=== PATIENT | female | born 1985 | race Caucasian/White ===

== ENCOUNTER 2019-05-22 10:06 | Emergency (ER) | payer SELFPAY ==
[~2019-05-22] VITALS: Ht 157.5 cm; Wt 57.0 kg
[2019-05-22] MEDS ORDERED: SODIUM CHLORIDE 0.9% 1,000 ML IV ONE (10:53)
[2019-05-22] MEDS ORDERED: KETOROLAC 30MG/ML VIAL IV STA (10:53)
[2019-05-22 11:17] LABS: BASOPHILS % 1.2 % (0.0-2.0); EOSINOPHILS % 1.2 % (0.0-5.0); HEMOGLOBIN. 12.8 g/dL (12.0-16.0); LYMPHOCYTES % 22.2 % (20.0-50.0); MEAN CORPUSCULAR HEMOGLOBIN 29.2 pg (28.0-32.0); MEAN CORPUSCULAR VOLUME 86.5 fL (81.0-99.0); MONOCYTES % 8.5 % (2.0-8.0); NEUTROPHILS % 66.9 % (40.0-76.0); PLATELET 373 x1000/uL (130-400); RED BLOOD CELL COUNT 4.39 mill/uL (4.2-5.4); RED CELL DISTRIBUTION WIDTH 14.9 % (11.6-14.6)
[2019-05-22 11:29] LABS: CHLORIDE 107 mEq/L (98-107)
[2019-05-22 11:38] LABS: CLARITY URINE CLEAR (CLEAR); COLOR URINE YELLOW (YELLOW); KETONES URINE NEGATIVE (NEGATIVE); LEUKOCYTE ESTERASE URINE NEGATIVE (NEGATIVE); NITRITE URINE NEGATIVE (NEGATIVE); OCCULT BLOOD URINE NEGATIVE (NEGATIVE); PROTEIN URINE NEGATIVE (NEGATIVE); SPECIFIC GRAVITY URINE 1.012 (1.005-1.030); UROBILINOGEN URINE 0.2 E.U./dL (0.2-1.0)
[2019-05-22] MEDS ORDERED: MAGNESIUM CITRATE 300ML SOLUTION PO ONE (14:30)
[2019-05-22 18:44] VITALS: BP 108/79
== END 2019-05-22 18:46 | disposition home or self-care (01) ==
LOC: ER 10:06
DX: K59.00 Constipation, unspecified (principal); M79.622 Pain in left upper arm; R10.84 Generalized abdominal pain
CPT/HCPCS: 36415; 74021; 80053; 81003; 81025; 83690; 85025; 96372; 96374; 99285; J1885; J7030

== ENCOUNTER 2020-05-05 23:22 | Emergency (ER) | payer SELFPAY ==
[~2020-05-05] VITALS: Ht 162.6 cm; Wt 72.0 kg
[2020-05-06] MEDS ORDERED: IBUPROFEN 800MG TABLET PO ONE
[2020-05-06 00:05] VITALS: BP 154/74
== END 2020-05-06 00:13 | disposition home or self-care (01) ==
LOC: ER 23:22
DX: M25.511 Pain in right shoulder (principal); M25.512 Pain in left shoulder
CPT/HCPCS: 99283

== ENCOUNTER 2021-11-01 04:39 | Inpatient (IN) | payer MEDICAID ==
[~2021-11-01] VITALS: Ht 165.1 cm; Wt 81.6 kg
[2021-11-01] MEDS ORDERED: LIDOCAINE HCL 1% 20ML VIAL (Pyxis) INJ INFIL SCH (05:15)
[2021-11-01] MEDS ORDERED: RHO(D) IMMUNE GLOBULIN 300 MCG/SYR IM ONE (05:15)
[2021-11-01] MEDS ORDERED: LACTATED RINGERS 1,000 ML IV SCH (05:15)
[2021-11-01] MEDS ORDERED: CARBOPROST TROMETHAMINE 250 MCG/ML AMPUL IM PRN (05:15)
[2021-11-01] MEDS ORDERED: MINERAL OIL 30ML BOTTLE TOP ONE (05:15)
[2021-11-01] MEDS ORDERED: MISOPROSTOL 100MCG TABLET VG SCH (05:15)
[2021-11-01] MEDS ORDERED: OXYTOCIN 30 UNITS/500ML NS PMX 500 ML IV SCH ×2 (05:15→06:30)
[2021-11-01] MEDS ORDERED: METHYLERGONOVINE MALEATE 0.2 MG/ML IM PRN (05:15)
[2021-11-01] MEDS ORDERED: NALOXONE HCL 0.4 MG/ML 1ML VIAL IM PRN (05:15)
[2021-11-01] MEDS: PENICILLIN G POTASSIUM 5 MMU in DEXT 5% WATER 100 ML IV SCH (05:25)
[2021-11-01 06:29] LABS: CLARITY URINE TURBID (CLEAR); COLOR URINE YELLOW (YELLOW); KETONES URINE NEGATIVE (NEGATIVE); LEUKOCYTE ESTERASE URINE 1+ (NEGATIVE); NITRITE URINE NEGATIVE (NEGATIVE); OCCULT BLOOD URINE 3+ (NEGATIVE); PH URINE 7.5 (4.5-8.0); PROTEIN URINE 2+ (NEGATIVE); UROBILINOGEN URINE 0.2 E.U./dL (0.2-1.0)
[2021-11-01] MEDS ORDERED: IBUPROFEN 400MG TABLET PO PRN (06:30)
[2021-11-01] MEDS ORDERED: LANOLIN OINT 7GM TUBE TOP PRN (06:30)
[2021-11-01] MEDS ORDERED: RHO(D) IMMUNE GLOBULIN 300 MCG/SYR IM PRN (06:30)
[2021-11-01 06:34] LABS: BASOPHILS % 0.7 % (0.0-2.0); EOSINOPHILS % 0.5 % (0.0-5.0); HEMATOCRIT. 33.4 % (36.0-48.0); HEMOGLOBIN. 10.7 g/dL (12.0-16.0); INR 0.9; LYMPHOCYTES % 21.9 % (20.0-50.0); MEAN CORPUSCULAR HEMOGLOBIN 25.8 pg (28.0-32.0); MEAN CORPUSCULAR VOLUME 80.5 fL (81.0-99.0); MEAN PLATELET VOLUME 9.7 fl (7.4-10.4); NEUTROPHILS % 67.9 % (40.0-76.0); PARTIAL THROMBOPLASTIN TIME 23.1 sec (23.4-31.0); PLATELET 250 x1000/uL (130-400); PROTHROMBIN TIME 9.6 sec (9.6-11.0); RED BLOOD CELL COUNT 4.15 mill/uL (4.2-5.4); RED CELL DISTRIBUTION WIDTH 21.8 % (11.6-14.6)
[2021-11-01 06:53] LABS: *AMPHETAMINES SCREEN URINE NEGATIVE (NEGATIVE); *BARBITURATES SCREEN URINE NEGATIVE (NEGATIVE); *BENZODIAZEPINES SCREEN URINE NEGATIVE (NEGATIVE); *COCAINE SCREEN URINE NEGATIVE (NEGATIVE); CANNABINOID URINE SCREEN NEGATIVE (NEGATIVE); METHADONE URINE SCREEN NEGATIVE (NEGATIVE); OPIATES URINE SCREEN NEGATIVE (NEGATIVE); PHENCYCLIDINE URINE SCREEN NEGATIVE (NEGATIVE)
[2021-11-01 08:30] VITALS: BP 112/56
[2021-11-01 09:00] VITALS: BP 112/58
[2021-11-01] MEDS ORDERED: PENICILLIN G POTASSIUM 2.5 MMU in DEXTROSE 5% WATER 50 ML IV SCH (09:30)
[2021-11-01] MEDS: PRENATAL VIT/FE FUMARATE/FA TABLET PO SCH (09:46)
[2021-11-01] MEDS: IBUPROFEN 800MG TABLET PO PRN (09:46)
[2021-11-01 13:06] LABS: HEPATITIS B SURFACE ANTIGEN NEGATIVE
[2021-11-01 16:00] VITALS: BP 107/55
[2021-11-01 19:30] VITALS: BP 119/59
[2021-11-02 05:06] VITALS: BP 124/52
[2021-11-02 06:10] LABS: BASOPHILS % 0.6 % (0.0-2.0); EOSINOPHILS % 0.9 % (0.0-5.0); HEMOGLOBIN. 9.6 g/dL (12.0-16.0); LYMPHOCYTES % 20.3 % (20.0-50.0); MEAN CORPUSCULAR HEMOGLOBIN 26.6 pg (28.0-32.0); MEAN CORPUSCULAR VOLUME 80.5 fL (81.0-99.0); MEAN PLATELET VOLUME 9.2 fl (7.4-10.4); MONOCYTES % 8.4 % (2.0-8.0); NEUTROPHILS % 69.8 % (40.0-76.0); PLATELET 218 x1000/uL (130-400); RED BLOOD CELL COUNT 3.61 mill/uL (4.2-5.4); RED CELL DISTRIBUTION WIDTH 22.1 % (11.6-14.6)
[2021-11-02] MEDS: PRENATAL VIT/FE FUMARATE/FA TABLET PO SCH (07:42)
[2021-11-02] MEDS: IBUPROFEN 800MG TABLET PO PRN ×2 (07:44→23:21)
[2021-11-02 07:45] VITALS: BP 126/66
[2021-11-02 09:32] LABS: PLATELET ESTIMATE NORMAL
[2021-11-02 16:00] VITALS: BP 122/74
[2021-11-02 20:00] VITALS: BP 138/78
[2021-11-03 04:00] VITALS: BP 125/76
[2021-11-03 08:00] VITALS: BP 117/65
[2021-11-03 11:26] VITALS: BP 117/65
[2021-11-03] MEDS: PRENATAL VIT/FE FUMARATE/FA TABLET PO SCH (11:26)
[2021-11-03] MEDS: IBUPROFEN 800MG TABLET PO PRN (11:26)
== END 2021-11-03 12:15 | disposition home or self-care (01) | DRG 560 ==
LOC: OBSVTOIN 04:39 → 8 EST LDRP 04:39 → 8EST 08:30
PROVIDERS: ADMIT Obstetrics & Gynecology; ATTEND Obstetrics & Gynecology
PROC: 10E0XZZ Delivery of Products of Conception, External Approach (ICD-10-PCS; principal; 2021-11-01)
DX: O80 Encounter for full-term uncomplicated delivery (principal); Z37.0 Single live birth; Z20.822 Contact with and (suspected) exposure to COVID-19; Z3A.00 Weeks of gestation of pregnancy not specified
CPT/HCPCS: 36415; 80305; 81003; 85025; 86592; 86703; 86762; 86850; 86900; 87340; 87426; 99281; J2540; J3490; J7060; J7120; J2590